=== PATIENT | female | born 1985 | race Caucasian/White ===

== ENCOUNTER 2017-08-01 06:45 | Inpatient (IN) | payer BC ==
[2017-08-01] MEDS ORDERED: PROMETHAZINE 25 MG/ML VIAL IV PRN (08:02)
[2017-08-01] MEDS ORDERED: Ringers Lactate 1,000 ML IV PRN (08:02)
[2017-08-01] MEDS ORDERED: BUTORPHANOL 1 MG/ML INJ IV ONE (08:05)
[2017-08-01 08:34] LABS: RPR Titer ND
[2017-08-01 08:40] LABS: Absolute Lymphocytes (CBC) 1.8 K/uL (0.7-4.9); Absolute Monocytes 0.5 K/uL (0.1-1.3); Absolute Neutrophil 7.2 K/uL (1.8-8.0); Basophils % 0.2 % (0-1.3); Eosinophils % 0.5 % (0-4.4); Hematocrit 31.3 % (36.0-45.0); Lymphocytes % 18.5 % (15.3-44.8); MCH 23.2 pg (27.0-35.0); MCV 70.8 fL (80-100); MPV 7.4 fL (7.6-11.3); Monocytes % 4.8 % (3.3-12.3); RBC Red Blood Cell Count 4.42 M/uL (3.86-4.86)
[2017-08-01] MEDS ORDERED: OXYTOCIN/LR 20 UNIT/1,000 ML BAG IV SCH (09:00)
[2017-08-01] MEDS ORDERED: Ringers Lactate 1,000 ML IV SCH (09:00)
[2017-08-01 09:18] VITALS: BMI 45.6
[2017-08-01] MEDS ORDERED: ROPIVACAINE HCL 100 ML IV PRN (09:37)
[2017-08-01] MEDS ORDERED: FENTANYL CITR 100 MCG/2 ML IV ONE (09:37)
[2017-08-01] MEDS ORDERED: ROPIVACAINE HCL 0.2% 20ML AMP IV ONE (09:38)
--- NOTE | 2017-08-01 13:06 | HP ---
Date of Admission: 08/01/2017 History Of Present Illness: Ms. Konstantin Royal is a 31-year-old, , female, 1, para 0 now at 38+ weeks gestation. She has been followed by me during this with compli cations of infertility, anemia, elevated gestational diabetes screen, and now rising blood pressure, edema. Because of this, at 38+ weeks gestation she is admitted for induction of labor. She denies r ecent cough, cold, fever, or chills. Past Medical History: Please see record. Family History: Please see record. Review of Systems: She denies recent cough, cold, fever, or chills. No recent nausea or vomiting. She denies any vagin al bleeding or spotting, other than a little bit of brown discharge after a pelvic exam on . She denies any bowel issues. has been active. Physical Examination: General: Reveals female, in no apparent distress. Neck: Supple without adenopathy or thyromegaly. Lungs: Clear. Cardiac: Regular rate and rhythm without murmurs. Breasts: Not examined. Abdomen: Nontender. She has a 38 cm fundal height. heart tones well heard in lower quadrant, vertex presentation. Pelvic Exam: Cervix 1+, 80% effaced, vertex and -1 station. Extremities: 1+ lower extremity edema. Impression: A 38+ week , favorable cervix, edema, rising blood pressure. Plan: The patient will be admitted for induction of labor. STEPHANIE/MARLA Voice ID: [id number]
[2017-08-01] MEDS ORDERED: CARBOPROST TROME 250 MCG/ML IM ONE (14:00)
[2017-08-01] MEDS ORDERED: ACETAMINOPHEN 500 MG TAB PO ONE (14:00)
--- NOTE | 2017-08-01 14:45 | P.PN ---
Date of Service: 08/01/17 Cx 3+cm, 80% effaced, vtx, minus 1-2, with some caput noted on vertex, adequate contraction pattern with reactive fht's and no current periodic decells. I am becoming concerned about lack of progress and descent of vertex. Will continue with labor induction and expect more progress.
[2017-08-01] MEDS ORDERED: LIDOCAINE 1% 20 ML MDV ONE (18:41)
[2017-08-01] MEDS ORDERED: Oxycodone HCl/Acetaminophen 1 TAB TAB PO PRN (20:03)
[2017-08-01] MEDS ORDERED: CARBOPROST TROME 250 MCG/ML IM PRN (20:03)
[2017-08-01] MEDS ORDERED: ONDANSETRON 4 MG (ODT) TAB PO PRN (20:03)
--- NOTE | 2017-08-01 20:07 | P.BOP ---
Preoperative diagnosis: 38+wks , edema, rising bp Postoperative diagnosis: same, delivery viable male infant Primary procedure: induction of labor, scvd, male Secondary procedure: repair 2degree midline laceration Estimated blood loss: Less than 300ml Anesthesia: epidural Complications: Other (possible spinal tap) Transferred to: Other (270) Condition: Good
[2017-08-01] MEDS ORDERED: OXYTOCIN/LR 20 UNITS/1,000 ML BAG IV SCH (21:00)
[2017-08-01 23:09] LABS: RPR (Rapid Plasma Reagin) NON-REACT (NON-REACT)
[2017-08-02 04:52] LABS: Absolute Lymphocytes (CBC) 2.4 K/uL (0.7-4.9); Absolute Monocytes 0.7 K/uL (0.1-1.3); Absolute Neutrophil 11.2 K/uL (1.8-8.0); Basophils % 0.2 % (0-1.3); Eosinophils % 0.3 % (0-4.4); Hematocrit 29.7 % (36.0-45.0); Lymphocytes % 16.9 % (15.3-44.8); MCH 22.6 pg (27.0-35.0); MCV 71.8 fL (80-100); MPV 7.4 fL (7.6-11.3); RBC Red Blood Cell Count 4.14 M/uL (3.86-4.86)
[2017-08-02] MEDS ORDERED: DOCUSATE CALCIUM 240 MG CAP PO SCH (09:00)
[2017-08-02] MEDS: IBUPROFEN 200 MG TAB PO PRN ×2 (15:45→21:45)
--- NOTE | 2017-08-02 18:46 | OP ---
Surgeon: William Morrow MD Delivery Note: Ms. Adrienne Royal is a 32-year-old female with 1, para 0, at 38+ weeks gestation, admitted for elective induction of labor secondary to rising blood p ressure and edema despite bedrest. She was noted to be 1+ cm on admission. scalp electrode wa s applied and used to rupture her membranes. Pitocin induction of labor was begun, and she had a fir st stage of labor of 10 hours and 45 minutes, second stage of labor of 1 hour and 13 minutes. She de livered by spontaneous controlled vaginal delivery a 7 pounds 15 ounce male infant, 9 and 9, ov er a second-degree midline perineal laceration. The was delivered in vertex OA. The cord was delayed, clamped, cut, and the infant was placed on the patient's upper abdomen. Cord blood was obt ained. The placenta was spontaneously expelled and appeared to be intact. Intrauterine exam reveale d no retained placental fragments. The laceration was repaired in the usual fashion with 3-0 Vicryl suture. She had epidural catheter placed earlier in her labor course and received excellent benefit from this. Possible spinal tap occurred at the time of epidural placement. Estimated total blood lo ss was less than 300 cc at the time of delivery. STEPHANIE/MARLA Voice ID: [id number] Report ID: [id number]
[2017-08-03 12:50] LABS: HBsAG Nonreactive (Nonreactive)
[2017-08-03 13:29] VITALS: BP 130/81; TEMP 97
--- NOTE | 2017-08-07 09:06 | DS ---
Date of Discharge: 08/03/2017 Final Hospital Discharge Diagnosis: A 38+ week , elevated blood pressure, edema, iron-defic iency anemia. Complications: None. Procedures: Artificial rupture of membranes, Pitocin-induction of labor, spontaneous controlled vagi nal delivery of viable male , repair of second-degree perineal laceration, also epidural anesth esia. Hospital Course: The patient is a 32-year-old female, 1, para 0 admitted f or induction secondary to elevated blood pressure and edema. She delivered 7 pounds 15 ounce male in giles, 9 and 9 over a second-degree perineal laceration with epidural anesthesia. She was dismi ssed on the first day, ambulatory on a select diet with routine post vaginal delivery acti vity restrictions. Lab work included an admission hemoglobin and hematocrit of 10.2, 31.3; dismissal of 9.4, 29.7. She had a nonreactive RPR, but she is beta strep negative and has Rh A positive blood type. She was dismissed to be seen back in my office in 1 week for blood pressure check with the us ual post vaginal delivery activity restrictions, to stay on her iron and vitamins, and to ta ke Tylenol or ibuprofen for pain relief. STEPHANIE/MARLA Voice ID: [id number] Report ID: [id number]
== END 2017-08-03 09:30 | disposition home or self-care (01) | DRG 775 ==
LOC: 2ND-WC 06:45
PROVIDERS: ADMIT Specialist; ATTEND Specialist
PROC: 10907ZC Drainage of Amniotic Fluid, Therapeutic from Products of Conception, Via Natural or Artificial Opening (ICD-10-PCS; principal; 2017-08-01)
PROC: 10E0XZZ Delivery of Products of Conception, External Approach (ICD-10-PCS; 2017-08-01)
PROC: 0KQM0ZZ Repair Perineum Muscle, Open Approach (ICD-10-PCS; 2017-08-01)
PROC: 3E033VJ Introduction of Other Hormone into Peripheral Vein, Percutaneous Approach (ICD-10-PCS; 2017-08-01)
DX: O70.1 Second degree perineal laceration during delivery (principal); Z37.0 Single live birth; O14.94 Unspecified pre-eclampsia, complicating childbirth; O99.02 Anemia complicating childbirth; O12.04 Gestational edema, complicating childbirth; Z3A.38 38 weeks gestation of pregnancy
CPT/HCPCS: 36415; 85025; 86592; 86850; 86900; 86901; 87340; J2590; J2795; J3010